=== PATIENT | female | born 1945 | race Caucasian/White ===

== ENCOUNTER 2019-09-04 11:41 | Inpatient (IN) | payer MEDICARE ==
[~2019-09-04] VITALS: Ht 175.3 cm; Wt 51.8 kg
[2019-09-04] VITALS (121 sets, daily range): BP systolic 117–144; BP diastolic 64–70; PULSE 92–101; TEMP 98–98.8; O2SAT 79–100
[~2019-09-04 11:41] MED LIST: ADVIL200 MG PO; NORVASC 5MG5 MG/TAB PO; ULTRAM 50MG TAB50 MG PO; ZYRTEC10 M1 PO
[2019-09-04] MEDS ORDERED: ALLEGRA 180MG180 MG PO (11:53)
[2019-09-04 12:31] LABS: BASO # 0.1 (0.0-0.2); BASO % 0.5 % (0.0-2.0); EOS # 0.3 (0.0-0.7); EOS % 2.2 % (0-4.0); GRAN # 9.1 (1.4-6.5); GRAN % 82.2 % (42.2-75.2); HEMOGLOBIN 10.8 g/dl (12.5-16.0); LYMPH % 8.6 % (20.0-51.0); MEAN CELL VOLUME 96 fl (80.0-100.0); MEAN CORPUSCULAR HEMOGLOBIN 29 pg (27.0-31.0); MEAN CORPUSCULAR HGB CONC 31 g/dl (33.0-37.0); MEAN PLATELET VOLUME 9.8 fl (7.4-10.4); MONO # 0.7 (0.1-0.6); PLATELET COUNT 289 K/mm3 (130-400); RED BLOOD COUNT 3.69 M/mm3 (4.10-5.30); REDCELL DISTRIBUTION WIDTH-CV 15.1 % (11.5-14.5)
[2019-09-04 12:33] LABS: ALBUMIN 3.6 gm/dL (3.5-5.0); BILIRUBIN,TOTAL 0.8 mg/dL (0.0-1.0); CALCIUM 8.6 mg/dL (8.4-10.2); CREATININE, serum 0.58 (0.52-1.25); POTASSIUM 3.5 mmol/L (3.4-5.0); TOTAL PROTEIN 7.3 gm/dL (6.4-8.2)
[2019-09-04 12:35] LABS: HEMATOCRIT 35.4 % (37.0-47.0); PROTHROMBIN TIME 11.6 SECONDS (9.7-12.8)
--- NOTE | 2019-09-04 15:40 | NUR ---
PATIENT ADMITED INTO ROOM 348 FROM ER WITH RIGHT HIP FX. A&O. RLE EXTERNALLY ROTATED. TEDS TO LLE. SCD'S TO BLE. POSITIVE PEDAL PULSES. ELIZALDE TO DEPENDENT DRAINAGE WITH SMALL AMOUNTS OF EWELINA COLORED URINE. IV FLUIDS INFUSING INTO LEFT AC VIA PUMP. PATIENT ON OXYGEN AT 3L PER NC. PATIENT HAS HX OF COPD AND WEARS OXYGEN AT HOME AT 3L. HEAD TO TOE ASSESSMENT COMPLETE. ORIENTED TO ROOM. ORTHO AT BEDSIDE. SEE ORDERS.
[2019-09-04] MEDS ORDERED: NORCO 325 MG-51 TAB PO (15:52)
[2019-09-04] MEDS ORDERED: XANAX .25M0.25 MG/TA PO (15:53)
[2019-09-04] MEDS ORDERED: ULTRAM 50MG TAB50 MG PO (15:53)
[2019-09-04] MEDS ORDERED: RT SPIRIVA18 MCG IH (15:54)
[2019-09-04] MEDS ORDERED: XOPENEX HF0.045 MG/A IH (15:56)
--- NOTE | 2019-09-04 16:10 | NUR ---
AT BEDSIDE. SEE ORDERS. PULM SPIROMETRY IN AM BEFORE PENDING SURGERY. SEE ORDERS.
[2019-09-04] MEDS ORDERED: PULMICORT0.5 MG/2 M IH (16:11)
[2019-09-04] MEDS ORDERED: PERFOROMIS20 MCG/2 M IH (16:11)
[2019-09-04 16:54] LABS: TSH w REFLEX 9.66 uIU/mL (0.465-4.680)
[2019-09-04 17:10] LABS: ARTERIAL BLD GAS O2 SATURATION 93.8 % (92-100); ARTERIAL BLD GAS TCO2 CT 34.4; ARTERIAL BLOOD GAS BASE EXCESS 4.5 (-2-2); ARTERIAL BLOOD GAS HCO3 32.3 meq/L (22-26); ARTERIAL BLOOD GAS PO2 73.6 mmHg (80-100); ARTERIAL BLOOD GAS pH 7.31 (7.35-7.45)
[2019-09-04 17:48] LABS: COLLECTION METHOD CATHETER
[2019-09-04 18:00] LABS: MUCOUS Present /lpf; PH 5 (5-8); SQUAMOUS EPITHELIAL None Seen /hpf; URINE APPEARANCE Turbid; URINE BACTERIA Occasional /hpf; URINE BILIRUBIN Negative (NEGATIVE); URINE BLOOD 1+ (NEGATIVE); URINE COLOR Amber; URINE GLUCOSE Negative (NEGATIVE); URINE KETONE Trace (NEGATIVE); URINE LEUKOCYTE ESTERASE Trace (NEGATIVE); URINE NITRATE Negative (NEGATIVE); URINE PROTEIN(semi-quant) 3+ (NEGATIVE); URINE RBC 0-2 /hpf; URINE UROBILINOGEN Negative (NEGATIVE)
--- NOTE | 2019-09-04 20:16 | NUR ---
Received report from LOIS Vera.
--- NOTE | 2019-09-04 20:35 | NUR ---
Patient arrived to ICU room 2 via medical bed. Patient was transferred to ICU bed via turning sheet. Patient arrives with nasal cannula on 3L of oxygen and D51/2NS running to the LAC at 60 mL/hour. Patient's vitals are obtained. O2 saturation rested at 90-91%, so oxygen was titrated to 5L and respiratory was notified of patient's arrival so that bipap could be initiated per Escobar's orders. All other vitals within normal limits. Patient arrives with tiffany hose on the left leg, and SCDs bilaterally. Patient's skin is further assessed; skin is warm, dry, and flaking; no other skin issues noted. Patient arrives with gold earrings and a gold necklace which are removed per her request and placed with her other belongings. Patient rates R hip pain as 4/10 with movement, but is tolerable otherwise. No other complaints noted at this time. Kenneth notified of patient's arrival. Will continue to monitor.
[2019-09-04 22:39] LABS: ARTERIAL BLD GAS O2 SATURATION 94.1 % (92-100); ARTERIAL BLD GAS TCO2 CT 33.4; ARTERIAL BLOOD GAS BASE EXCESS 4.1 (-2-2); ARTERIAL BLOOD GAS HCO3 31.5 meq/L (22-26); ARTERIAL BLOOD GAS PCO2 62.3 mmHg (35-45); ARTERIAL BLOOD GAS PO2 73.8 mmHg (80-100); ARTERIAL BLOOD GAS pH 7.32 (7.35-7.45)
[2019-09-05] VITALS (653 sets, daily range): BP systolic 103–157; BP diastolic 53–88; PULSE 66–93; TEMP 97.7–98.6; O2SAT 72–100
--- NOTE | 2019-09-05 02:00 | NUR ---
Report given to LOIS Calderon.
--- NOTE | 2019-09-05 02:40 | NUR ---
At bedside assisting with repostioning when heart rate suddenly increased to 140-160's appeared to be a-fib RVR. Episode lasting less than five minutes then HR back to baseline. At 0255, returned to A-fib RVR with a rate of 140's-160's. Patient denies any shortness of breath, palpitations or dizziness. BP stable. Notified hospitalist- will review EKG; no orders received at this time.
--- NOTE | 2019-09-05 03:33 | NUR ---
Converted back to sinus rhythm at this time. BP 140/67.
--- NOTE | 2019-09-05 04:12 | NUR ---
Hospitalist in unit; notified that patient is back in sinus rhythm.
[2019-09-05 04:55] LABS: ARTERIAL BLD GAS O2 SATURATION 94.2 % (92-100); ARTERIAL BLD GAS TCO2 CT 33.5; ARTERIAL BLOOD GAS BASE EXCESS 4.9 (-2-2); ARTERIAL BLOOD GAS HCO3 31.7 meq/L (22-26); ARTERIAL BLOOD GAS PCO2 58.4 mmHg (35-45); ARTERIAL BLOOD GAS PO2 71.5 mmHg (80-100); ARTERIAL BLOOD GAS pH 7.35 (7.35-7.45)
[2019-09-05 06:37] LABS: CALCIUM 8.3 mg/dL (8.4-10.2); CREATININE, serum 0.66 (0.52-1.25); POTASSIUM 5.4 mmol/L (3.4-5.0)
[2019-09-05 06:55] LABS: MEAN CELL VOLUME 99 fl (80.0-100.0); MEAN CORPUSCULAR HGB CONC 29 g/dl (33.0-37.0); MEAN PLATELET VOLUME 10.1 fl (7.4-10.4); PLATELET COUNT 254 K/mm3 (130-400); RED BLOOD COUNT 3.37 M/mm3 (4.10-5.30); REDCELL DISTRIBUTION WIDTH-CV 15.3 % (11.5-14.5)
[2019-09-05 07:09] LABS: HEMATOCRIT 33.3 % (37.0-47.0); HEMOGLOBIN 9.8 g/dl (12.5-16.0); MEAN CORPUSCULAR HEMOGLOBIN 29 pg (27.0-31.0)
--- NOTE | 2019-09-05 08:30 | NUR ---
DISCUSSED WITH PATIENT HAVING MRI PERFORMED. PATIENT STATES SHE GETS VERY ANXIOUS WITH "TESTS LIKE THAT" DR EMMANUEL CONFIRMED THAT PATIENT HAS SOME CLAUSTROPHOBIA. PATIENT AGREED TO HAVE MRI DONE IF SHE IS GIVEN MEDICATION FOR ANXIETY BEFOREHAND. DR EMMANUEL STATES TO GIVE HER 1MG ATIVAN PO ONCE BEFORE MRI.
[2019-09-05 08:32] LABS: BAND 4 % (0-10); EOSINOPHIL 1 % (0-4); LYMPHOCYTE 7 % (20.0-51.0); METAMYELOCYTE 2 % (0-0); NEUTROPHILS 85 % (42.0-75.2)
[2019-09-05 08:33] LABS: PLATELET ESTIMATE NORMAL (NORMAL)
--- NOTE | 2019-09-05 10:01 | NUR ---
PT TAKEN VIA CART TO MRI BY CHARGE OUT CLERK CRYSTAL.
--- NOTE | 2019-09-05 10:18 | NUR ---
PO perez met with the patient to discuss a discharge plan. The patient lives in [place] with her son. She is her sons caregiver. The patient reports her daughter, Regina lives in [place] but is staying in [place] with patient's son for a few days. The patient has a nebulizer at home and reports independence with ADLs. The patient reports that [facility] is to deliver some Ensure and a wheelchair to her house this day. The patient's PCP is Dr. Bi Cordero and patient receives medications delivered from [facility]. The patient does not have advanced directives in the EMR but was interested in a DPOA-HC form. The patient wishes to designate her daugthter. PO perez will assist with this process. The patient is to have an MRI this day. PO perez attempted to contact the patient's daughter and and was not able to leave a message. director of cardiopulmonary services will continue to follow to ensure a safe discharge.
--- NOTE | 2019-09-05 10:45 | NUR ---
PT RETURNED FROM MRI. PT TRANSFERRED TO ICU VIA SLIDE BOARD. PATIENT TOLERATED WELL.
--- NOTE | 2019-09-05 11:06 | NUR ---
PT NOTED TO HAVE PAROXYSMAL ATRIAL FIB WITH RATE RANGING FROM 90-115.
--- NOTE | 2019-09-05 12:23 | NUR ---
PT RESTING. FAMILY AT BEDSIDE.
--- NOTE | 2019-09-05 13:20 | NUR ---
PT SLEEPING, FAMILY REQUESTED SHE NOT BE DISTURBED.
--- NOTE | 2019-09-05 14:06 | NUR ---
SPOKE WITH LASHAE SAEZ, AGAIN REGARDING POSSIBILITY OF PATIENT GOING FOR HIP REPAIR THIS AFTERNOON. PLAN OF NOW IS TO TAKE PATIENT AROUND 1700 FOR HIP REPAIR.
--- NOTE | 2019-09-05 14:28 | NUR ---
DR SOTO NOTIFIED OF PATIENT GOING BACK INTO ATRIAL FIB WITH RAPID RATE AND HAS SUSTAINED FOR AROUND 30-45 MINS.
--- NOTE | 2019-09-05 14:42 | NUR ---
PT GIVEN 25MG IV OF CARDIZEM D/T PAROXYSMAL ATRIAL FIB WITH RVR 25MG GIVEN SLOW OVER 2 MINS. HR AFTER CARDIZEM NOW 75, SR WITH PVCS.
--- NOTE | 2019-09-05 14:48 | NUR ---
ATTEMPTED TO CALL DAUGHTER TWICE TO UPDATE HER ON THE PLAN TO TAKE PT TO SURGERY. NO ANSWER.
--- NOTE | 2019-09-05 14:56 | NUR ---
DAUGHTER CALLED BACK. I WAS ABLE TO UPDATE HER ON THE PLAN OF TAKING PATIENT TO SURGERY AROUND 1700.
--- NOTE | 2019-09-05 15:37 | NUR ---
CONSENT OBTAINED FROM PATIENT AND PLACED ON CHART.
--- NOTE | 2019-09-05 16:31 | NUR ---
PT TAKEN BY PREOP NURSES TO OR VIA BED. PATIENT LETHARGIC BUT EASILY AROUSABLE AND IS ALERT AND ORIENTED X 4.
--- NOTE | 2019-09-05 19:30 | NUR ---
Patient arrives back from OR at this time with PACU nurse. Bedside report received from LOIS Tyler. Attached patient to unit monitoring equipment and assessment complete. Lungs are clear in the upper lobes and all perkins are diminished. Patient on 3L NC and saturating 100%. HR and rhythm regular with normal S1 and S2 heard. Bowel sounds active x4. Peripheral pulses are all palable. Surgical site looks good, dressing intact, no drainage noted. Ice pack in place. Patient has no complaints of pain. She is very drowsy, but opens eyes spontaneously and answers questions appropriately. Patient has no further needs at this time. Will continue to monitor. Call light within reach.
[2019-09-06] VITALS (766 sets, daily range): BP systolic 100–145; BP diastolic 49–110; PULSE 57–150; TEMP 97.8–98.9; O2SAT 56–100
--- NOTE | 2019-09-06 | NUR ---
Patient awake at this time and asking to be repositioned. Assisted with boosting in the bed and turning to opposite side. Assessment complete with no changes from previous exam. Vitals obtained and remain stable. Patient has comeplaints of 8/10 pain in her right hip, medication to be provided. No further needs at this time. Will continue to monitor. Call light within reach.
--- NOTE | 2019-09-06 04:00 | NUR ---
Patient awake at this time and requesting more pain medications. To be provided. Assessment complete with no changes from previous exam. Vitals obtained and remain stable. Repositioned for comfort. Patient has no further needs. Will continue to monitor.
[2019-09-06 06:23] LABS: MEAN CELL VOLUME 98 fl (80.0-100.0); MEAN CORPUSCULAR HGB CONC 30 g/dl (33.0-37.0); MEAN PLATELET VOLUME 9.8 fl (7.4-10.4); PLATELET COUNT 269 K/mm3 (130-400); RED BLOOD COUNT 3.21 M/mm3 (4.10-5.30); REDCELL DISTRIBUTION WIDTH-CV 14.9 % (11.5-14.5)
[2019-09-06 06:33] LABS: HEMATOCRIT 31.5 % (37.0-47.0); HEMOGLOBIN 9.4 g/dl (12.5-16.0); MEAN CORPUSCULAR HEMOGLOBIN 29 pg (27.0-31.0)
[2019-09-06 06:38] LABS: CALCIUM 8.5 mg/dL (8.4-10.2); CREATININE, serum 0.86 (0.52-1.25); POTASSIUM 5.4 mmol/L (3.4-5.0)
--- NOTE | 2019-09-06 07:00 | NUR ---
Bedside shift report received from LOIS Ambriz. Patient is complaining of discomfort and noted to be in afib at this time. Dr. Aguilar notified of afib RVR. Orders received and initiated. Full assessment completed. Patient repositioned and given pain medication for hip pain. Bed in lowest position. Call light placed within reach. Side rails up x3.
[2019-09-06 07:15] LABS: BAND 5 % (0-10); HYPOCHROMIA 2+; LYMPHOCYTE 7 % (20.0-51.0); NEUTROPHILS 85 % (42.0-75.2)
--- NOTE | 2019-09-06 07:15 | NUR ---
Bedside report given to LOIS Grimes
--- NOTE | 2019-09-06 10:00 | NUR ---
Dr. Zapien notified of consult put in my Dr. Aguilar. Dr. Zapien updated on patient's current status and orders initiated by Dr. Aguilar. Dr. Zapien states to continue current treatment plan and he will see the patient this afternoon.
--- NOTE | 2019-09-06 10:55 | NUR ---
Dr. Aguilar notified that Cardizem gtt will be initiated per his verbal order. Dr. Aguilar states to initiate gtt at 5mg/hr. Orders initiated and patient has tolerated well. Heart rate currently irregular and 110's-150's. Refer to titration documentation for cardizem gtt.
--- NOTE | 2019-09-06 12:00 | NUR ---
Dr. Escobar at bedside to assess patient. Orders received and initiated. Patient converts to sinus rhythm. Bipap initiated. Patient has no complaints or concerns at this time. Patient's daughter at bedside. Full assessment completed. Bed in lowest position. Call light within reach. Side rails up x3.
--- NOTE | 2019-09-06 12:27 | NUR ---
Patient instructed not to eat lunch at the moment by Dr. Escobar. He would prefer the patient be on Bipap for the next couple hours, get an ABG, and then she can eat.
--- NOTE | 2019-09-06 13:06 | NUR ---
Patient remains on Bipap and is unable to perform incentive spirometry at this time.
--- NOTE | 2019-09-06 13:37 | NUR ---
SW received a call from Patients nurse asking for an explanation of what a DPOA is. SW met with patient at her bedside and Patients daughter Regina was also present. SW discussed purpose of DNR and assist in process of patient signing DNR with nurses as witnesses. SW made a copy for the patients file and provided the patient/daughter with a copy for their records. Patient declined further assistance at this time.
[2019-09-06 15:02] LABS: ARTERIAL BLD GAS O2 SATURATION 96.2 % (92-100); ARTERIAL BLD GAS TCO2 CT 24.6; ARTERIAL BLOOD GAS BASE EXCESS -0.5 (-2-2); ARTERIAL BLOOD GAS HCO3 23.5 meq/L (22-26); ARTERIAL BLOOD GAS PCO2 36.1 mmHg (35-45); ARTERIAL BLOOD GAS PO2 79.7 mmHg (80-100); ARTERIAL BLOOD GAS pH 7.43 (7.35-7.45)
--- NOTE | 2019-09-06 19:00 | NUR ---
Bedside shift report given to LOIS Ambriz at this time. Patient is sleeping peacefully. Vital signs stable. Call light within reach. Bed in lowest position. Side rails up x3.
--- NOTE | 2019-09-06 19:20 | NUR ---
Bedside report received from LOIS Grimes. All drips confirmed. Transfer of care.
--- NOTE | 2019-09-06 20:00 | NUR ---
Patient awake at this time and fussing with her blankets. Patient is alert and oriented x2. When asked where she is right now, she answers with a "stationary store" and proceeds to give road names and directions on how to get there. Speech is rambling. Patient is oriented to self, year, and knows the president. does not answer month, date, or place correctly. Assessment complete. Lungs are clear in the upper lobes with all perkins being diminished. HR and rhythm are regular with normal S1 and S2 heard. Bowel sounds active x4. Peripheral pulses are palpable in all extremities. Right hip dressing is clean and intact. Patient has no complaints of pain at this time. Assisted patient to reposition in bed for comfort. Will continue to monitor. Call light within reach.
[2019-09-07] VITALS (226 sets, daily range): BP systolic 123–150; BP diastolic 60–78; PULSE 59–130; TEMP 97.4–98.8; O2SAT 65–100
--- NOTE | 2019-09-07 | NUR ---
Patient sleeping peacefully on the BiPAP at this time. No signs of distress or pain. Vitals obtained and remain stable. No further needs at this time. Will continue to monitor. Call light within reach.
--- NOTE | 2019-09-07 04:00 | NUR ---
Patient continues to sleep quietly on the BiPAP. Patient awakens to name and follows commands, but falls back asleep quickkly. Vitals obtained and remain stable. No signs of pain or distress. Repositioned for comfort. Will continue to monitor. Call light within reach.
[2019-09-07 06:11] LABS: HEMATOCRIT 30.1 % (37.0-47.0); HEMOGLOBIN 9.3 g/dl (12.5-16.0)
--- NOTE | 2019-09-07 07:22 | NUR ---
Bedside report given to LOIS Martinez
--- NOTE | 2019-09-07 12:00 | NUR ---
Received patient from ICU per bed. O2 on at 3L per nasal cannula. Telemetry intact. No c/o pain. Aquacell dressing CDI to right hip. Daughter at bedside.
--- NOTE | 2019-09-07 12:30 | NUR ---
Medicated with Morphine for c/o right hip pain.
--- NOTE | 2019-09-07 13:30 | NUR ---
Physical therapy stood patient x 3. Tolerated activity well.
--- NOTE | 2019-09-07 14:00 | NUR ---
Xanax given for c/o feeling anxious. Repositioned in bed.
--- NOTE | 2019-09-07 15:00 | NUR ---
Telemetry reports atrial fib in 120's. Cardiazem po given per order.
--- NOTE | 2019-09-07 17:00 | NUR ---
IV Cardizem for heart rate in 150's. Rate down to 90's after med. Has been medicated with [place] for c/o right hip pain.
--- NOTE | 2019-09-07 18:30 | NUR ---
Repositioned in bed without complaint. Heart rate fluctuating from 70's to 150's.
--- NOTE | 2019-09-07 20:45 | NUR ---
Pt resting in bed with HOB elevated. Pt c/o pain in R hip. PRN meds given. No distress noted. Respirations even and unlabored. Lungs clear. O2@3L via NC. Telemetry in place- A. fib non rate controlled. Abdomen soft, nontender. Bs+. Pts catheter was discontinued on dayshift and patient has not voided yet. Pt put on bed wright with no results. Coccyx reddned- mepilex applied. Pt repositioned for comfort.
--- NOTE | 2019-09-07 21:45 | NUR ---
Bladder scan completed- 350 mL. Pt still unable to void.
--- NOTE | 2019-09-07 21:50 | NUR ---
Dr. Castano called about patients non rate controlled A.fib as well as about patient not voiding since catheter being removed. No new orders received at this time. Will continue to monitor patient.
--- NOTE | 2019-09-07 23:10 | NUR ---
Pts rate continues to jump up to 150s. IV Cardizem bolus given per MS order. VSS.
--- NOTE | 2019-09-08 00:15 | NUR ---
Post catheter void successful. Pt voided in bed wright 350 mL clear, leonidas urine.
--- NOTE | 2019-09-08 04:00 | NUR ---
Pt converted to normal sinus rhythm. Sleeping with BiPAP on.
[2019-09-08 06:17] LABS: BASO % 0.1 % (0.0-2.0); GRAN # 12.9 (1.4-6.5); GRAN % 89.6 % (42.2-75.2); HEMOGLOBIN 10.5 g/dl (12.5-16.0); LYMPH # 0.5 (1.2-3.4); LYMPH % 3.5 % (20.0-51.0); MEAN CELL VOLUME 94 fl (80.0-100.0); MEAN CORPUSCULAR HEMOGLOBIN 30 pg (27.0-31.0); MEAN CORPUSCULAR HGB CONC 31 g/dl (33.0-37.0); MEAN PLATELET VOLUME 9.9 fl (7.4-10.4); MONO # 0.9 (0.1-0.6); MONO % 6.2 % (1.7-9.3); PLATELET COUNT 327 K/mm3 (130-400); RED BLOOD COUNT 3.55 M/mm3 (4.10-5.30); REDCELL DISTRIBUTION WIDTH-CV 15.1 % (11.5-14.5)
[2019-09-08 06:19] LABS: HEMATOCRIT 33.4 % (37.0-47.0)
[2019-09-08 06:32] LABS: ALBUMIN 3.2 gm/dL (3.5-5.0); BILIRUBIN,TOTAL 0.2 mg/dL (0.0-1.0); CALCIUM 8.5 mg/dL (8.4-10.2); CREATININE, serum 0.71 (0.52-1.25); POTASSIUM 4.2 mmol/L (3.4-5.0); TOTAL PROTEIN 6.5 gm/dL (6.4-8.2)
--- NOTE | 2019-09-08 06:45 | NUR ---
Pt resting this AM. States that she is comfortable and denies pain. Adequate urinary output. Using bed wright. Telemetry in place. Pt is still in sinus rhythm. BiPAP removed and O2@3L placed on pt per pt request. Pt refused Ice pack to R hip. No other needs noted.
[2019-09-08 07:35] VITALS: BP 149/57; PULSE 74; TEMP 98.6
--- NOTE | 2019-09-08 10:00 | NUR ---
Patient alert and oriented, answers questions appropriately. See assessment. RLE with aquacel CDI, no redness or drainage noted. Neuros intact to RLE, no numbness or tingling noted, pulses palpable. FWB. Redness noted to coccyx, mepilex in place. C/o mild pain 3/10 to RLE. No other c/o at this time.
--- NOTE | 2019-09-08 10:24 | NUR ---
The patient is needing a custodial stay. CATHI presented the patient choice form. The patient's first choice is [facility] and second choice is [facility] in [place] [employer] and form was placed in the chart. CATHI placed form in chart. SW faxed referrals. technology services manager will continue to follow.
[2019-09-08 11:27] VITALS: BP 156/61; PULSE 76; TEMP 97.5
--- NOTE | 2019-09-08 15:18 | NUR ---
Patient has frequently refused IS throughout the day. States it causes too much pain to her RLE. Continue to encourage.
[2019-09-08 16:08] VITALS: BP 146/59; PULSE 91; TEMP 98.1
--- NOTE | 2019-09-08 16:30 | NUR ---
Dr Aguilar notified of conversion into A-flutter per tele, requests that Dr Zapien be notified. Dr Zapien notified, see orders.
--- NOTE | 2019-09-08 16:39 | NUR ---
[facility] reports they can take the patient. horticultural services supervisor will continue to follow.
[2019-09-08 19:40] VITALS: BP 153/73; PULSE 73; TEMP 97.8
--- NOTE | 2019-09-08 20:52 | NUR ---
Resting in bed. Assessment complete. Bases bilaterally crackles, upper lobes diminished. Heart sounds irregular. Pulses strong throughout. No edema noted. Bowels active x4. Reports 6/10 pain in right hip. Repositioned and provided with PRN percocet at this time. Coccyx erythema present, blanchable. Mepalex applied. Right hip dressing has mild drainage present otherwise dressing intact. Left elbow bruising present. Right forearm INT flushed without complications. Denies other needs. Call light in reach.
[2019-09-08 22:37] VITALS: BP 137/56; PULSE 88; TEMP 97.6
--- NOTE | 2019-09-09 03:20 | NUR ---
Provided patient KRUNAL arroyo for hip pain at this time. Call light in reach. Bed wright used.
[2019-09-09 03:46] VITALS: BP 156/67; PULSE 85; TEMP 97.4
--- NOTE | 2019-09-09 06:29 | NUR ---
Patient required x2 doses of norco throughout night for right hip pain. Otherwise uneventful night. Resting in bed this AM.
--- NOTE | 2019-09-09 06:47 | NUR ---
Report given to LOIS Garza
[2019-09-09 07:07] LABS: BASO % 0.1 % (0.0-2.0); GRAN # 13.5 (1.4-6.5); GRAN % 89.8 % (42.2-75.2); LYMPH # 0.5 (1.2-3.4); LYMPH % 3.2 % (20.0-51.0); MEAN CELL VOLUME 94 fl (80.0-100.0); MEAN CORPUSCULAR HGB CONC 31 g/dl (33.0-37.0); MEAN PLATELET VOLUME 9.9 fl (7.4-10.4); MONO # 0.9 (0.1-0.6); MONO % 6.2 % (1.7-9.3); PLATELET COUNT 314 K/mm3 (130-400); RED BLOOD COUNT 3.28 M/mm3 (4.10-5.30); REDCELL DISTRIBUTION WIDTH-CV 15.4 % (11.5-14.5)
[2019-09-09 07:08] LABS: HEMATOCRIT 30.9 % (37.0-47.0); HEMOGLOBIN 9.6 g/dl (12.5-16.0); MEAN CORPUSCULAR HEMOGLOBIN 29 pg (27.0-31.0)
[2019-09-09 07:26] LABS: ALBUMIN 2.7 gm/dL (3.5-5.0); BILIRUBIN,TOTAL 0.2 mg/dL (0.0-1.0); CALCIUM 8.5 mg/dL (8.4-10.2); CREATININE, serum 0.53 (0.52-1.25); POTASSIUM 4.3 mmol/L (3.4-5.0); TOTAL PROTEIN 5.6 gm/dL (6.4-8.2)
[2019-09-09 07:29] VITALS: BP 139/57; PULSE 78; TEMP 97.7
--- NOTE | 2019-09-09 08:00 | NUR ---
Patient alert and oriented, answers questions appropriately. See assessment. RLE with aquacel CDI, no redness or drainage noted. Pulses palpable to RLE, neuros intact. FWB. C/o pain 4/10 to right hip. No other c/o at this time.
--- NOTE | 2019-09-09 09:48 | NUR ---
Gloria Zapien and Shawn here to see patient.
[2019-09-09] MEDS ORDERED: CARDIZEM CD 18180 MG PO (11:17)
[2019-09-09] MEDS ORDERED: ELIQUIS 2.5 PO (11:18)
[2019-09-09] MEDS ORDERED: NORCO 325 MG-51 TAB PO (11:19)
[2019-09-09] MEDS ORDERED: XANAX .25M0.25 MG/TA PO (11:20)
[2019-09-09 12:02] VITALS: BP 153/64; PULSE 92; TEMP 98
[2019-09-09 14:03] VITALS: BP 153/64; PULSE 92; TEMP 98
--- NOTE | 2019-09-09 15:40 | NUR ---
Patient discharged to [facility] with transporation staff. Report called to Shana. Paperwork sent. Discharge time is 1510.
--- NOTE | 2019-09-09 16:20 | NUR ---
Medical Logistics Specialist attended clinical rounds with the team and patient to discharge today. CATHI faxed updates including operative note to Missy at [facility] who advised they could accept today. CATHI set up transportation time for 2:30pm and notified patient RN, Kayla. CATHI notified Missy that patient requires 3 liters of oxygen for transportation. CATHI met with patient who is in agreeance, although states she is very tired. CATHI contacted patient's daughter, Noreen (ph#[phone]) to notify about discharge plan and Noreen is in agreeance. CATHI faxed discharge orders to Missy at [facility]. No additional concerns at this time.
--- NOTE | 2019-09-09 16:23 | NUR ---
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 CATHI collaborated with Missy at [facility] and [facility] to obtain needed oxygen for transportation. Missy (ph#[phone]) to return oxygen tank to ER at earliest convience.
== END 2019-09-09 15:10 | DRG 469 ==
LOC: COL.ER 11:41 → ICU 12:11 → SURG 12:11 → ICU 20:36 → SURG 09-07 12:19
PROVIDERS: Emergency Medicine; Internal Medicine; Internal Medicine Pulmonary Disease; Physician Assistant; ADMIT Student in an Organized Health Care Education/Training Program
PROC: 0SRR019 Replacement of Right Hip Joint, Femoral Surface with Metal Synthetic Substitute, Cemented, Open Approach (ICD-10-PCS; principal; 2019-09-04)
PROC: 5A09457 Assistance with Respiratory Ventilation, 24-96 Consecutive Hours, Continuous Positive Airway Pressure (ICD-10-PCS; 2019-09-06)
DX: S72.001A Fracture of unspecified part of neck of right femur, initial encounter for closed fracture (principal); J96.21 Acute and chronic respiratory failure with hypoxia; M31.1 Thrombotic microangiopathy; J96.22 Acute and chronic respiratory failure with hypercapnia; N39.0 Urinary tract infection, site not specified; I50.22 Chronic systolic (congestive) heart failure; J84.10 Pulmonary fibrosis, unspecified; I48.91 Unspecified atrial fibrillation; E87.5 Hyperkalemia; B96.20 Unspecified Escherichia coli [E. coli] as the cause of diseases classified elsewhere; Z66 Do not resuscitate; J44.9 Chronic obstructive pulmonary disease, unspecified; I08.1 Rheumatic disorders of both mitral and tricuspid valves; I48.0 Paroxysmal atrial fibrillation; F40.240 Claustrophobia; D64.9 Anemia, unspecified; W01.0XXA Fall on same level from slipping, tripping and stumbling without subsequent striking against object, initial encounter; Y93.01 Activity, walking, marching and hiking; Z90.710 Acquired absence of both cervix and uterus; Z87.891 Personal history of nicotine dependence; Y92.009 Unspecified place in unspecified non-institutional (private) residence as the place of occurrence of the external cause; Y99.9 Unspecified external cause status; Z88.1 Allergy status to other antibiotic agents
CPT/HCPCS: 99223-AI; 99231-AI; 99232-AI; 99233-AI; 99239; A4216; A9284; C1776; J0696; J2270; J2370; J2405; J2704; J2795; J2920; J3480; J7030; J7512

== ENCOUNTER 2019-09-25 10:14 | Inpatient (IN) | payer MEDICARE ==
[~2019-09-25] VITALS: Ht 175.3 cm; Wt 53.0 kg
[2019-09-25] VITALS (195 sets, daily range): BP systolic 110–116; BP diastolic 43–65; PULSE 69–79; TEMP 97–97.5; O2SAT 93–100
[~2019-09-25 10:14] MED LIST changes: +ALLEGRA 180MG180 MG PO; +CARDIZEM CD 18180 MG PO; +ELIQUIS 2.5 PO; +NORCO 325 MG-51 TAB PO; +PERFOROMIS20 MCG/2 M IH; +PULMICORT0.5 MG/2 M IH; +RT SPIRIVA18 MCG IH; +XANAX .25M0.25 MG/TA PO; +XOPENEX HF0.045 MG/A IH
[2019-09-25 11:16] LABS: ARTERIAL BLD GAS O2 SATURATION 90.2 % (92-100); ARTERIAL BLD GAS TCO2 CT 36.7; ARTERIAL BLOOD GAS BASE EXCESS 7.7 (-2-2); ARTERIAL BLOOD GAS HCO3 34.7 meq/L (22-26); ARTERIAL BLOOD GAS PCO2 65.6 mmHg (35-45); ARTERIAL BLOOD GAS PO2 62.5 mmHg (80-100); ARTERIAL BLOOD GAS pH 7.34 (7.35-7.45)
[2019-09-25 11:22] LABS: MEAN CELL VOLUME 97 fl (80.0-100.0); MEAN CORPUSCULAR HEMOGLOBIN 30 pg (27.0-31.0); MEAN CORPUSCULAR HGB CONC 31 g/dl (33.0-37.0); MEAN PLATELET VOLUME 9.6 fl (7.4-10.4); PLATELET COUNT 382 K/mm3 (130-400); RED BLOOD COUNT 2.68 M/mm3 (4.10-5.30); REDCELL DISTRIBUTION WIDTH-CV 15.9 % (11.5-14.5)
[2019-09-25 11:24] LABS: INR 1.5 (0.8-3.0); PROTHROMBIN TIME 18.1 SECONDS (9.7-12.8)
[2019-09-25 11:33] LABS: ALANINE AMINOTRANSFERASE 40 U/L (9-52); ALKALINE PHOSPHATASE 114 U/L (50-136); ANION GAP 6 mmol/L (7-16); AST,SGOT 21 U/L (15-37); BILIRUBIN,TOTAL 0.4 mg/dL (0.0-1.0); BLOOD UREA NITROGEN 30 mg/dL (7-17); CARBON DIOXIDE 37 mmol/L (22-30); CHLORIDE 93 mmol/L (98-107); CREATININE, serum 0.62 (0.52-1.25); GLUCOSE 112 mg/dL (74-106); POTASSIUM 3.7 mmol/L (3.4-5.0); SODIUM 136 mmol/L (137-145); TOTAL PROTEIN 6.1 gm/dL (6.4-8.2)
[2019-09-25 11:52] LABS: TROPONIN-I < 0.012 ng/mL (0.000-0.035)
[2019-09-25 11:54] LABS: BAND 31 % (0-10); LYMPHOCYTE 4 % (20.0-51.0); METAMYELOCYTE 1 % (0-0); NEUTROPHILS 62 % (42.0-75.2); PLATELET ESTIMATE NORMAL (NORMAL)
[2019-09-25 11:59] LABS: COLLECTION METHOD CATHETER
[2019-09-25 12:14] LABS: MUCOUS Present /lpf; PH 6 (5-8); SQUAMOUS EPITHELIAL None Seen /hpf; URINE APPEARANCE Clear; URINE BACTERIA None Seen /hpf; URINE BILIRUBIN Negative (NEGATIVE); URINE BLOOD Negative (NEGATIVE); URINE COLOR Yellow; URINE GLUCOSE Negative (NEGATIVE); URINE KETONE Negative (NEGATIVE); URINE LEUKOCYTE ESTERASE Trace (NEGATIVE); URINE NITRATE Negative (NEGATIVE); URINE PROTEIN(semi-quant) Negative (NEGATIVE); URINE UROBILINOGEN Negative (NEGATIVE)
[2019-09-25 13:47] LABS: ARTERIAL BLD GAS O2 SATURATION 97.7 % (92-100); ARTERIAL BLD GAS TCO2 CT 37.1; ARTERIAL BLOOD GAS BASE EXCESS 8.2 (-2-2); ARTERIAL BLOOD GAS HCO3 35.1 meq/L (22-26); ARTERIAL BLOOD GAS PO2 98.3 mmHg (80-100); ARTERIAL BLOOD GAS pH 7.35 (7.35-7.45)
[2019-09-25 13:48] LABS: ARTERIAL BLOOD GAS PCO2 65.2 mmHg (35-45)
[2019-09-25] MEDS ORDERED: ASPIRIN 32325 MG/TAB PO ×2 (16:15→18:00)
[2019-09-25] MEDS ORDERED: CALCIUM 600600 M2 PO (16:15)
[2019-09-25] MEDS ORDERED: COLACE 100100 MG/CAP PO (16:16)
[2019-09-25] MEDS ORDERED: RT SPIRIVA18 MCG IH (16:17)
[2019-09-25 16:28] LABS: ARTERIAL BLD GAS O2 SATURATION 98.8 % (92-100); ARTERIAL BLOOD GAS BASE EXCESS 4.9 (-2-2); ARTERIAL BLOOD GAS HCO3 31.2 meq/L (22-26); ARTERIAL BLOOD GAS PCO2 57.5 mmHg (35-45); ARTERIAL BLOOD GAS pH 7.35 (7.35-7.45)
[2019-09-25 16:29] LABS: ARTERIAL BLOOD GAS PO2 131.9 mmHg (80-100)
--- NOTE | 2019-09-25 17:20 | NUR ---
Pt arrives to ICU room 15 acc by ED staff. Call received from CT regarding new order for CT head. Pt transferred to bed and sent to CT with tech. Pt's daughter calls for update-privacy code provided, update given. Dr Escobar updated with recent ABG results. Bipap rate increased from 20-22. Patient's respirations shallow with Tidal Volumes in mid 100s while asleep. Rouses to touch and resumes deeper inhalation with TV in 300-400 range.
--- NOTE | 2019-09-25 19:20 | NUR ---
Call placed to MS to clarify last dose of cardizem as patient is NPO, and has a recent history of afib with RVR. Has not received since yesterday morning. Discussed with provider and paramaters to hold obtained. We will continue with drip for prevention. Shift report given.
[2019-09-26] VITALS (766 sets, daily range): BP systolic 93–117; BP diastolic 44–68; PULSE 78–85; TEMP 97–98.7; O2SAT 90–100
[2019-09-26 05:07] LABS: ARTERIAL BLD GAS TCO2 CT 32.8; ARTERIAL BLOOD GAS BASE EXCESS 8.8 (-2-2); ARTERIAL BLOOD GAS HCO3 31.7 meq/L (22-26); ARTERIAL BLOOD GAS PCO2 36.1 mmHg (35-45); ARTERIAL BLOOD GAS PO2 64.1 mmHg (80-100); ARTERIAL BLOOD GAS pH 7.56 (7.35-7.45)
[2019-09-26 05:21] LABS: MEAN CELL VOLUME 96 fl (80.0-100.0); MEAN CORPUSCULAR HGB CONC 31 g/dl (33.0-37.0); MEAN PLATELET VOLUME 9.9 fl (7.4-10.4); PLATELET COUNT 392 K/mm3 (130-400); RED BLOOD COUNT 2.27 M/mm3 (4.10-5.30); REDCELL DISTRIBUTION WIDTH-CV 15.9 % (11.5-14.5)
[2019-09-26 05:22] LABS: HEMATOCRIT 21.7 % (37.0-47.0); HEMOGLOBIN 6.7 g/dl (12.5-16.0); MEAN CORPUSCULAR HEMOGLOBIN 30 pg (27.0-31.0)
[2019-09-26 05:26] LABS: ALBUMIN 2.8 gm/dL (3.5-5.0); BILIRUBIN,TOTAL 0.5 mg/dL (0.0-1.0); CALCIUM 8.7 mg/dL (8.4-10.2); CREATININE, serum 0.73 (0.52-1.25); MAGNESIUM 1.9 mg/dL (1.6-2.3); POTASSIUM 4.4 mmol/L (3.4-5.0); TOTAL PROTEIN 5.6 gm/dL (6.4-8.2)
--- NOTE | 2019-09-26 05:32 | NUR ---
Notified KENNEDY Dorado about pt's HGB of 6.7 from 8. She is reordering an H&H to be drawn. Pt otherwise stable and will continue to monitor.
[2019-09-26 05:45] LABS: ANISOCYTOSIS 1+; BAND 69 % (0-10); HYPOCHROMIA 2+; LYMPHOCYTE 1 % (20.0-51.0); METAMYELOCYTE 1 % (0-0); NEUTROPHILS 28 % (42.0-75.2); PLATELET ESTIMATE NORMAL (NORMAL)
[2019-09-26 05:47] LABS: OVALOCYTES 1+
[2019-09-26 06:05] LABS: HEMATOCRIT 21.2 % (37.0-47.0); HEMOGLOBIN 6.8 g/dl (12.5-16.0)
--- NOTE | 2019-09-26 10:12 | NUR ---
I spoke with daughter Regina this morning by phone. She has already spoken to Dr Escobar once today and is aware that she is having a thoracentesis and getting blood today. This is the anniversary month of her 's one year ago. She is very tearful and feeling emotional but is a lso very clear that she is still hoping that her mother will show improvement and does want to support her to allow improvement but does not want her mother to suffer if she is not improving. If she does not show improvement, then she would want her to be on comfort care. She is aware that this decision would need to be made under those circumstances in the next few hours to days, if her mother does not improve. Her went to the hospice house to live out his final days last year. I will maintain contact with her and did give her my contact information.
--- NOTE | 2019-09-26 11:54 | NUR ---
First visit from the cad application support specialist. No needs right now.
[2019-09-26 12:09] LABS: PLEURAL FLUID RBC 1000 /mm3 (0-0); PLEURAL FLUID WBC 3081 /mm3
[2019-09-26 12:14] LABS: PLEURAL FLUID APPEARANCE HAZY; PLEURAL FLUID COLOR YELLOW
--- NOTE | 2019-09-26 12:30 | NUR ---
Auto Wheel Alignment Specialist in to obtain prelim images and set up for Left Lung thoracentesis. Pt is refusing. Will reassess in am.
[2019-09-26 12:38] LABS: GLUCOSE,PLEURAL FLUID 97 mg/dL
[2019-09-26 12:40] LABS: TOTAL PROTEIN,PLEURAL FLUID < 2.0 gm/dL
--- NOTE | 2019-09-26 17:24 | NUR ---
Talked with pt this am and with her daughter Regina by phone. Pt is not happy at the longterm. She reports feeling better after having pleural effusion on right drained. She was also to get a unit of blood today. It is her hope and daughter's hope to treat her pneumonia and drain other pleural effusions to allow her to feel better but daughter is realistic that with recent hip fracture and now this pneumonia/respiratory failure that her mother may not get better. Currently we are managing her respiratory failure but daughter reports that she will come to bedside if things worsen . She is also very clear that changing to a comfort care goal would be considered if her mother doesn't show improvement. She did speak with her daughter by phone briefly but then fell asleep.
--- NOTE | 2019-09-26 17:49 | NUR ---
Pt receiving one unit PRBC. No s/s reaction in first 15 min VSS Resting after receiving IV morphine for R leg/hip pain.
--- NOTE | 2019-09-26 19:45 | NUR ---
Bedside report received from LOIS Regalado
--- NOTE | 2019-09-26 20:00 | NUR ---
Patient asleep at this time. Awakens to name and follows commands. Conversation is confused. When asked if she is in pain she states, "No, I'm pretty comfortable right now. I'm ok right now." Vitals obtained and are WNL. Patient on 3L NC. Assessment complete. Lungs are clear in all perkins but also diminished. HR and rhythm are regular with normal S1 and S2 heard. Bowel sounds active x4. Patient has some +1 edema to the lower extremities. Patient's right hip incision is well approximated and held together with glue. No dressing present. Pillow between legs. Patient has no further needs at this time and requests to sleep some more. Assisted to a more comfortable position. Call light within reach. Will continue to monitor.
[2019-09-26 20:33] LABS: HEMATOCRIT 25.9 % (37.0-47.0); HEMOGLOBIN 8.2 g/dl (12.5-16.0)
[2019-09-27] VITALS (695 sets, daily range): BP systolic 91–119; BP diastolic 35–87; PULSE 74–148; TEMP 97.1–97.9; O2SAT 62–100
--- NOTE | 2019-09-27 | NUR ---
Patient resting on the BiPAP. Awakens to name and answers some questions, but becomes uncooperative quickly and states "Just get out. Leave me alone". Vitals obtained and remain stable. No further needs at this time. Will continue to monitor. Call light within reach.
--- NOTE | 2019-09-27 04:00 | NUR ---
Patient asleep on BiPAP. Patient responds to stimuli and noise in the room, but is not cooperative with staff and moans to "leave me alone, just let me sleep". Vitals obtained and remain stable. When asked if in pain, she shakes her head no. Patient has no further needs at this time. Will continue to monitor.
[2019-09-27 05:35] LABS: MEAN CELL VOLUME 94 fl (80.0-100.0); MEAN CORPUSCULAR HGB CONC 33 g/dl (33.0-37.0); MEAN PLATELET VOLUME 9.8 fl (7.4-10.4); PLATELET COUNT 401 K/mm3 (130-400); RED BLOOD COUNT 2.77 M/mm3 (4.10-5.30); REDCELL DISTRIBUTION WIDTH-CV 15.4 % (11.5-14.5)
[2019-09-27 05:41] LABS: HEMOGLOBIN 8.5 g/dl (12.5-16.0); MEAN CORPUSCULAR HEMOGLOBIN 31 pg (27.0-31.0)
[2019-09-27 05:50] LABS: CALCIUM 7.9 mg/dL (8.4-10.2); CREATININE, serum 0.91 (0.52-1.25)
[2019-09-27 06:47] LABS: BAND 52 % (0-10); LYMPHOCYTE 2 % (20.0-51.0); NEUTROPHILS 44 % (42.0-75.2)
[2019-09-27 06:48] LABS: PLATELET ESTIMATE INCREASED (NORMAL)
--- NOTE | 2019-09-27 07:00 | NUR ---
Bedside report received from LOIS Ambriz.
--- NOTE | 2019-09-27 07:30 | NUR ---
Bedside report given to LOIS Ga
--- NOTE | 2019-09-27 07:30 | NUR ---
Patient c/o being uncomfortable. She is repositioned multiple times and warm blankets given to her.
--- NOTE | 2019-09-27 09:30 | NUR ---
Dr. Escobar here to see patient. After discussing with patient, it is decided to attempt Left Thoracentesis tomorrow. Consent obtained from Daughter via phone.
--- NOTE | 2019-09-27 11:30 | NUR ---
Dr. Castano rounds at this time.
--- NOTE | 2019-09-27 15:34 | NUR ---
PATIENT SHOWING S/S CONFUSION AND DELERIUM. SHE IS EASILY REORIENTED WITH CONVERSATION WITH THIS RN. SHE IS MOVED TO ROOM 3, WHICH HAS A WINDOW. DR. LITTLEJOHN UPDATE AT THIS TIME. HE AGREES ABOUT THE ROOM CHANGE. WILL CONTINUE TO MONITOR.
--- NOTE | 2019-09-27 15:45 | NUR ---
PATIENT NOTED TO BE IN AFIB RVR. CALL PLACED TO DR. LITTLEJOHN. ORDER RECEIVED FOR IV CARDIZEM BOLUS.
--- NOTE | 2019-09-27 16:04 | NUR ---
IV CARDIZEM BOLUS GIVEN. PATIENT REMAINS AFIB WITH RATE IN 130s. DR. LITTLEJOHN ON UNIT TO SEE PATIENT. ORDERS RECEIVED FOR PATIENT'S HOME DOSE OF XANAX. PATIENT C/O ANXIETY AT THIS TIME. WILL CONTINUE TO MONITOR
--- NOTE | 2019-09-27 19:07 | NUR ---
Report given to LOIS Ambriz. Patient lying in bed with no complaints. HR 148 Afib RVR on tele. KENNEDY Chauhan aware of this. She wants to wait and see if her PO Cardizem helps with HR. Katina knows to follow up with KENNEDY Chauhan if rate does not come down. Care turned over at this time.
--- NOTE | 2019-09-27 19:07 | NUR ---
Bedside report received from LOIS Ga
--- NOTE | 2019-09-27 20:00 | NUR ---
Patient awake in bed watching TV. Patient is alert and partially oriented, but conversation becomes confused. Vitals obtained a BP remains stable. Patient is in Afib RVR. Cardizem was given, waiting to see if conversion before given another bolus per provider. Assessment complete. Patient's HR is irregular, first heart sound heard. Lungs are clear in the upper lobes with diminished in the bases and left lower lobe being absent. Bowel sounds active x4. Peripheral pulses are palpable in all extremities. BLE edema +2. Patient does not have complaints of pain at this time and is not requesting medications. States she does have some anxiety feelings. Made room darker for her comfort and adjusted blankets and cords to keep her from feeling constricted. Patient has no further needs at this time. Will continue to monitor. Call light within reach.
--- NOTE | 2019-09-27 20:25 | NUR ---
Patient was given a 10mg bolus of cardizem at 2019, patient converted to afib 2mins later, then at this time she converts to sinus rhythm with frequent PAC's. Will continue to monitor.
[2019-09-28] VITALS (905 sets, daily range): BP systolic 103–126; BP diastolic 53–63; PULSE 80–97; TEMP 97.5–98.1; O2SAT 55–100
--- NOTE | 2019-09-28 | NUR ---
Patient resting in bed watching tv. Vitals obtained and remain stable. Patient states pain is better. Patient is requesting some soup at this time. Provided. Patient has no further needs, will continue to monitor.
--- NOTE | 2019-09-28 04:00 | NUR ---
Patient sleeping at this time. Awakens to name. Vitals obtained and remain stable. does have complaints of pain rated 6/10, medication to be provided. Patient requests some ice cream, provided. Patient has no further needs at this time. Will continue to monitor. Call light within reach.
--- NOTE | 2019-09-28 05:00 | NUR ---
Patient is noted to have swelling to her right elbow that is pitting +1. Notified KENNEDY Chauhan. Patient's arm elevated on pillow. Patient states that this happens to her because she uses that arm to move herself and pushes on her elbow. Patient's arm above and below the edema are free of swelling, PICC line has perfect blood return and flushes. Arm circumference remains the same. Will continue to monitor.
[2019-09-28 05:07] LABS: MEAN CELL VOLUME 95 fl (80.0-100.0); MEAN CORPUSCULAR HGB CONC 32 g/dl (33.0-37.0); MEAN PLATELET VOLUME 9.4 fl (7.4-10.4); PLATELET COUNT 408 K/mm3 (130-400); RED BLOOD COUNT 2.74 M/mm3 (4.10-5.30); REDCELL DISTRIBUTION WIDTH-CV 15.5 % (11.5-14.5)
[2019-09-28 05:18] LABS: CALCIUM 7.8 mg/dL (8.4-10.2); CREATININE, serum 0.95 (0.52-1.25); POTASSIUM 3.6 mmol/L (3.4-5.0)
[2019-09-28 05:26] LABS: HEMATOCRIT 26.1 % (37.0-47.0); HEMOGLOBIN 8.3 g/dl (12.5-16.0); MEAN CORPUSCULAR HEMOGLOBIN 30 pg (27.0-31.0)
[2019-09-28 06:32] LABS: BAND 45 % (0-10); LYMPHOCYTE 1 % (20.0-51.0); METAMYELOCYTE 1 % (0-0); NEUTROPHILS 52 % (42.0-75.2); PLATELET ESTIMATE INCREASED (NORMAL)
--- NOTE | 2019-09-28 07:38 | NUR ---
Bedside report given to LOIS Ga
--- NOTE | 2019-09-28 12:23 | NUR ---
Vancomycin Initial Dosing Pharmacy Note Ordering provider: Michael Castano MD Indication/duration: COPD, PNA LABS: eCrCl ~ 35, WBC increased to 29 today Recommendation: Loading dose: 1 gram given 09/28/19 @ 11:00 Maintenance dose: 500 mg every 12 hours Trough goal: 15-20 ug/mL, with first trough on 09/30/19 @ 10:30 Will continue to follow.
--- NOTE | 2019-09-28 19:00 | NUR ---
Bedside report received from LOIS Tyler.
--- NOTE | 2019-09-28 20:00 | NUR ---
Patient awake at this time sitting up in bed. She is alert but confused. Oriented to self and situation, but not date, time of day, or month. Conversation starts out as being oriented, but she drifts into other things quickly and becomes confused. Vitals obtained and are WNL. Assessment complete. Lungs are clear in all perkins as well as diminished. LLL is absent. HR and rhythm are regular at this time, but she moves in and out of rate controlled afib. Cardizem drip has remained off. Bowel sounds active x4. Peripheral pulses are palpable. Patient continues to have edema in BLE. Repositioned for comfort. No further needs at this time. Patient denies pain and shows no signs of distress. Will continue to monitor. Call light within reach.
[2019-09-29] VITALS (451 sets, daily range): BP systolic 97–134; BP diastolic 45–78; PULSE 70–90; TEMP 97.5–98.6; O2SAT 56–100
--- NOTE | 2019-09-29 | NUR ---
Patient is alert and confused. Patient talks about there being too many TV's in the room and that she cant turn the TV back on. Assisted her with the TV and found a channel she preferred. Vitals obtained and remain stable. No signs of distress and patient denies pain. Patient requests something to eat as her dinner was "unedible". Provided patient with some puddings and schuyler crackers, also provided some new hot tea and water. Offered her some apple sauce as well, but she denies want. No further needs at this time. Will continue to monitor. Call light within reach.
[2019-09-29 06:18] LABS: MEAN CELL VOLUME 95 fl (80.0-100.0); MEAN CORPUSCULAR HGB CONC 32 g/dl (33.0-37.0); MEAN PLATELET VOLUME 9.3 fl (7.4-10.4); PLATELET COUNT 377 K/mm3 (130-400); RED BLOOD COUNT 2.79 M/mm3 (4.10-5.30); REDCELL DISTRIBUTION WIDTH-CV 15.3 % (11.5-14.5)
[2019-09-29 06:34] LABS: CALCIUM 7.6 mg/dL (8.4-10.2); CREATININE, serum 0.97 (0.52-1.25); HEMATOCRIT 26.6 % (37.0-47.0); HEMOGLOBIN 8.4 g/dl (12.5-16.0); MEAN CORPUSCULAR HEMOGLOBIN 30 pg (27.0-31.0); POTASSIUM 3.6 mmol/L (3.4-5.0)
--- NOTE | 2019-09-29 07:36 | NUR ---
Bedside report given to LOIS Castillo.
[2019-09-29 09:06] LABS: PLEURAL FLUID RBC 2000 /mm3 (0-0); PLEURAL FLUID WBC 254 /mm3
[2019-09-29 09:09] LABS: PLEURAL FLUID APPEARANCE CLEAR; PLEURAL FLUID COLOR YELLOW
[2019-09-29 09:17] LABS: GLUCOSE,PLEURAL FLUID 101 mg/dL
[2019-09-29 09:21] LABS: TOTAL PROTEIN,PLEURAL FLUID < 2.0 gm/dL
[2019-09-29 10:21] LABS: BAND 4 % (0-10); METAMYELOCYTE 1 % (0-0); NEUTROPHILS 90 % (42.0-75.2)
[2019-09-29 10:22] LABS: HYPOCHROMIA 2+; TARGET CELLS 1+
[2019-09-29 10:23] LABS: BURR CELLS 1+; SCHISTOCYTES 1+
[2019-09-29 10:26] LABS: PLATELET ESTIMATE NORMAL (NORMAL)
--- NOTE | 2019-09-29 11:20 | NUR ---
Pt's daughter Regina updated on pt's status and plan to move to room 318. All quesitons answered.
--- NOTE | 2019-09-29 11:43 | NUR ---
Boiler/Chiller Operator attended rounds and patient to move to Medical floor today. SW attempted to meet with patient whoever she was adamant that she needed rest and requested SW leave her room. CATHI contacted [facility]-, patient's daughter Regina (ph#[phone]). Regina states patient has been living at [facility] after recent hip surgery. Regina estimates patient has been at [facility] for about a couple weeks. Regina states she does not think therapy has been going very well at [facility]. CATHI discussed a discharge plan with Regina who advised she believes patient should return to [facility]. SW presented Patient Choice Form to Regina who selects [facility] and provided verbal consent over the phone. Patient placed form in chart and faxed referral to [facility]. SW to continue to follow.
--- NOTE | 2019-09-29 12:18 | NUR ---
Pt was asleep when I went to visit with her today. She has been asking not to be disturbed. I am told she is moving to the floor today and according to social services counselorMagui, she will most likely return to her nursing facility in [place]. I will try to meet with pt again after she comes up to the floor.
--- NOTE | 2019-09-29 12:25 | NUR ---
REPORT CALLED TO AMBAR ABREU. ALL QUESTIONS ANSWERED.
--- NOTE | 2019-09-29 12:30 | NUR ---
Report received from ICU.
--- NOTE | 2019-09-29 13:00 | NUR ---
Pt transfered to medical bed amd taken up to room 318. Sabine Triplett notified of arrival.
--- NOTE | 2019-09-29 13:52 | NUR ---
[employer] Fishing Boat Crewman contacted Missy at [facility] and confirmed referral was received. Missy inquired about palliative care consult and having PT/OT ordered as patient was skilled at [facility]. SW collaborated this information to Medical SWStefanie as patient has been moved to Medical floor.
--- NOTE | 2019-09-29 22:30 | NUR ---
Patient in bed, resting. When asked if she is having pain, she said "I am fine right now", and declined pain medication. Refused all evening medications. Oriented x4. RUE PICC flushed with NS, patent. Infusing abx. Denies further needs at this time. Will continue to monitor.
[2019-09-30] VITALS (7 sets, daily range): BP systolic 86–116; BP diastolic 35–62; PULSE 64–97; TEMP 97–98.2
--- NOTE | 2019-09-30 04:00 | NUR ---
Patient in bed, awake. Appears anxious. States pain is 8/10 in right hip. Assisted on the bedpan with assist x2. Prn pain medication given per pt request. Patient was woken up by IV pump beeping, but was previously resting and appeared comfortable. Also states she is having difficulty breathing. 88% on 3L. Oxygen increased to 4L per pt request. RT notified that patient would like to be placed on BIPAP. Will continue to monitor.
--- NOTE | 2019-09-30 05:39 | NUR ---
Patient in bed, awake. States pain 7/10 in right hip. Prn pain medication given per pt request. BIPAP also removed per pt request, placed on 4L NC. Denies further needs at this time. Will continue to monitor.
[2019-09-30 06:36] LABS: MEAN CELL VOLUME 97 fl (80.0-100.0); MEAN CORPUSCULAR HGB CONC 31 g/dl (33.0-37.0); MEAN PLATELET VOLUME 9.9 fl (7.4-10.4); PLATELET COUNT 382 K/mm3 (130-400); RED BLOOD COUNT 2.82 M/mm3 (4.10-5.30); REDCELL DISTRIBUTION WIDTH-CV 15.2 % (11.5-14.5)
[2019-09-30 06:44] LABS: HEMATOCRIT 27.2 % (37.0-47.0); HEMOGLOBIN 8.3 g/dl (12.5-16.0); MEAN CORPUSCULAR HEMOGLOBIN 29 pg (27.0-31.0)
[2019-09-30 06:48] LABS: CALCIUM 7.6 mg/dL (8.4-10.2); CREATININE, serum 0.76 (0.52-1.25); MAGNESIUM 2.4 mg/dL (1.6-2.3); POTASSIUM 3.5 mmol/L (3.4-5.0)
[2019-09-30 07:56] LABS: PATHOLOGY DIFF REVIEW OK +
--- NOTE | 2019-09-30 08:15 | NUR ---
Patient sitting up in bed, A&Ox3. Reporting pain in right hip and all over body. Pain medication requested. VSS 3L NC O2. SOB reported with talking. IV CDI. Patient encouraged to repositioned to distribute weight on buttucks. Patient verbalized an understanding. Heels floated. No further needs expressed from patient. Call light within reach
[2019-09-30 09:01] LABS: BAND 9 % (0-10); LYMPHOCYTE 1 % (20.0-51.0); NEUTROPHILS 86 % (42.0-75.2); SCHISTOCYTES 1+
[2019-09-30 09:02] LABS: PLATELET ESTIMATE NORMAL (NORMAL)
--- NOTE | 2019-09-30 10:27 | NUR ---
CATHI faxed updates to [facility]. human services supervisor will continue to follow.
--- NOTE | 2019-09-30 11:35 | NUR ---
Talked with Abbi today who reports in general she is tired from being awakened so many times each day but is requesting magazines to look at and these were provided for her. her hip has been causing some pain today but she reports feeling much improved. States her valve is a problem now but knows Dr Escobar is looking into it. Plans to rest soon.
--- NOTE | 2019-09-30 19:20 | NUR ---
Patient repositioned in bed for comfort. Reporting pain in right hip down to right ankle. Pain medication given when requested. Lidocaine placed on right hip. Dressing on sacral area changed with pink dressing. Heels floated. VSS. IV CDI. No further needs expressed from patient. Call light within reach. Bed alarm on
--- NOTE | 2019-09-30 19:50 | NUR ---
Shift assessment complete. Patient in bed, awake. States pain in right hip is 8/10. States she feels anxious more than she does painful. Prn xanax given per pt request. Prn pain medication also given per pt request (norco was not effective). Assisted patient with setting up cereal/milk. Turned to left side (slightly), with pillow support. RUE PICC flushed per protocol. Denies further needs at this time. Will continue to monitor.
--- NOTE | 2019-09-30 23:47 | NUR ---
Patient in bed. Incontinent of urine. Bed pad and linen changed, terese-care provided. Repositioned to right side with pillow support. Pillow between knees. Heels noted to be reddened, not blanchable. Heel pillows applied. BP 100/40, cardizem held. Patient agreeable to wearing BIPAP, RT notified. SCD's applied. Denies further needs at this time. Will continue to monitor.
[2019-10-01 04:16] VITALS: BP 101/49; PULSE 85; TEMP 97.5
[2019-10-01 04:44] VITALS: BP 133/59; PULSE 76
--- NOTE | 2019-10-01 04:45 | NUR ---
Patient in bed, awake. BIPAP removed per pt request, oxygen via NC placed at 3L. Large incontinent BM/urine. Anita-care provided, bed pad changed, gown changed. Large mepilex changed on coccyx. Pt tolerated well. Repositioned to left side with pillow support. Heel pillows placed, SCD's on. States pain in right hip is 5/10, and is better. Declines pain medication. Denies further needs at this time. Will continue to monitor.
[2019-10-01 06:43] LABS: CALCIUM 7.7 mg/dL (8.4-10.2); CREATININE, serum 0.65 (0.52-1.25); POTASSIUM 3.5 mmol/L (3.4-5.0)
--- NOTE | 2019-10-01 07:30 | NUR ---
Received report, patient rang call light, was incontinent of medium stool. Patient was irritated, states she was uncomfortable and no one paid attention to her. Was notified in report that she was changed prior to shift report for urine incontinence. Patient states she is in pain. Medications provided for relief and repositioned after terese-care completed. Call light and personal items are within reach.
--- NOTE | 2019-10-01 08:28 | NUR ---
PATIENT WORE BIPAP LAST NIGHT AT 01/06
[2019-10-01 08:51] LABS: MEAN CELL VOLUME 97 fl (80.0-100.0); MEAN CORPUSCULAR HGB CONC 31 g/dl (33.0-37.0); MEAN PLATELET VOLUME 9.9 fl (7.4-10.4); PLATELET COUNT 426 K/mm3 (130-400); RED BLOOD COUNT 2.94 M/mm3 (4.10-5.30); REDCELL DISTRIBUTION WIDTH-CV 15.4 % (11.5-14.5)
[2019-10-01 08:53] LABS: HEMATOCRIT 28.4 % (37.0-47.0); HEMOGLOBIN 8.9 g/dl (12.5-16.0); MEAN CORPUSCULAR HEMOGLOBIN 30 pg (27.0-31.0)
[2019-10-01 09:17] LABS: BAND 8 % (0-10); LYMPHOCYTE 2 % (20.0-51.0); METAMYELOCYTE 1 % (0-0); MYELOCYTE 1 % (0-0)
[2019-10-01 09:18] LABS: NEUTROPHILS 84 % (42.0-75.2); PLATELET ESTIMATE NORMAL (NORMAL)
--- NOTE | 2019-10-01 09:27 | NUR ---
Two daughters were present in the room when Dr Aguilar visited. [facility] has declined transfer of this pt to them as they do not feel they would have any other treatment to offer. Daughters want to know what their mother's diagnosis is clearly defined as--"even if she had to go to surgery and on the table". Because [facility] has declined transfer, we are now waiting for family to discuss where they want their mother, who is on comfort care now, to go from here. They are waiting for their father to arrive and then they will start discussion, knowing that we are expecting a decision by the end of the day. Will provide support as they request.
[2019-10-01 11:51] VITALS: BP 101/54; PULSE 83; TEMP 97.6
--- NOTE | 2019-10-01 13:27 | NUR ---
A CT of the hip and chest was ordered for the patient. CATHI faxed update to [facility]. creative services specialist will continue to follow.
--- NOTE | 2019-10-01 14:59 | NUR ---
[facility] has accepted the patient for a long-term stay. managed services consultant will continue to follow.
--- NOTE | 2019-10-01 15:51 | NUR ---
Patient has left floor for CT scan
[2019-10-01 16:46] VITALS: BP 115/51; PULSE 89; TEMP 97.9
[2019-10-01 21:05] VITALS: BP 104/44; PULSE 107; TEMP 98.3
--- NOTE | 2019-10-01 21:15 | NUR ---
Shift assessment complete. Patient in bed, incontinent of large amount of urine. Anita-care provided, bed pad changed. Brief kept off d/t stage 2 on bottom. Mepilex on coccyx changed. Repositioned to right side with pillow support. Pillow support between knees. Bilateral heels noted to be reddened, not blanching. Heels floated in heel pillows. States pain is 7/10. Prn pain medication given. States she feels anxious, prn xanax given. Patient requesting to wear BIPAP for sleep, RT notified. Denies further needs at this time. Will continue to monitor.
[2019-10-01 23:25] VITALS: BP 95/49; PULSE 109; TEMP 97.4
--- NOTE | 2019-10-01 23:44 | NUR ---
Patient in bed, awake. States pain 8/10 in left hip. Prn IV medication given per request. BP 95/49. Cardizem held per ordered parameters. Patient states that the bipap makes her feel more anxious. Bipap removed, oxymask placed on 3L per pt request. Resps 40. Will notify Ave, MOTORCYCLE TECHNICIAN. Repositioned to right side with pillow support. Denies further needs at this time. Will continue to monitor.
--- NOTE | 2019-10-02 00:12 | NUR ---
Notified Ave, RACECAR DRIVER of patient's anxiety r/t BIPAP. IV ativan ordered. Patient agreeable to plan. RT notified.
--- NOTE | 2019-10-02 02:00 | NUR ---
Patient very drowsy, but awake. 16fr cardenas catheter placed with slight difficulty, and assist times 3. Clear yellow urine returned, 10ml balloon inflated. Stat-lock secure. 800ml out immediately, tubing clamped for 1/2 hour to avoid bladder spasms. Will continue to monitor and unclamp in 30 minutes. Repositioned to left side with pillow support. Heel pillows applied, pillow betweem knees. RT called to place BIPAP.
[2019-10-02 03:46] VITALS: BP 103/44; PULSE 101; TEMP 99.1
[2019-10-02 05:00] VITALS: BP 116/48
--- NOTE | 2019-10-02 05:13 | NUR ---
Patient in bed, RT at bedside. Per RT, pt took BIPAP off and threw her tele box at her. Patient requesting medication to "relax" her. Ave, CARPET INSTALLER HELPER notified, prn ativan ordered. Repositioned to right side with pillow support. BP 116/48, unable to give po cardizem d/t patient condition. Very drowsy, and does not want to be bothered. HR NSR 103 on tele. 71% on 3L oxymask. Oxygen increased to 5L. 88% on 5L oxymask. Denies further needs at this time, she wants to rest. Will continue to monitor.
--- NOTE | 2019-10-02 05:41 | NUR ---
Patient states she does feel like she is getting worse. When asked if her daughter can come visit with her, she stated that her daughter doesn't drive. In the case that she continues to decline, she states she would like her daughter here with her, and that her daughter would be able to find a way to come to the hospital.
[2019-10-02 06:39] LABS: MEAN CELL VOLUME 98 fl (80.0-100.0); MEAN CORPUSCULAR HGB CONC 31 g/dl (33.0-37.0); MEAN PLATELET VOLUME 9.8 fl (7.4-10.4); PLATELET COUNT 368 K/mm3 (130-400); RED BLOOD COUNT 2.68 M/mm3 (4.10-5.30); REDCELL DISTRIBUTION WIDTH-CV 15.8 % (11.5-14.5)
[2019-10-02 06:42] LABS: CALCIUM 7.8 mg/dL (8.4-10.2); CREATININE, serum 0.67 (0.52-1.25); POTASSIUM 4.7 mmol/L (3.4-5.0)
[2019-10-02 06:44] LABS: HEMATOCRIT 26.2 % (37.0-47.0); HEMOGLOBIN 8.2 g/dl (12.5-16.0); MEAN CORPUSCULAR HEMOGLOBIN 31 pg (27.0-31.0)
[2019-10-02 07:39] LABS: BAND 13 % (0-10); LYMPHOCYTE 3 % (20.0-51.0); METAMYELOCYTE 3 % (0-0); MYELOCYTE 2 % (0-0); NEUTROPHILS 75 % (42.0-75.2); PLATELET ESTIMATE NORMAL (NORMAL)
--- NOTE | 2019-10-02 07:45 | NUR ---
Received report from off going nurse. It was reported that patient had audible tracheal secretions and that she had a decline over night. Did go for rounding, patient is resting in bed, respirations are shallow and 36/minute. Abdominal breathing is noted. She has an oxymask in place at 10 lpm. Did touch patient's arm and state her name without verbal response, did note a grimace. Respiratory therapy did stop in and turned O2 to 8 lpm as patient was sating at 98% on the 10 L. There is noted to be little to no air movement to BLL upon auscultation. Did place call to provider, received order for ABG and stat cxr. Orders placed. Dr. Escobar is on the floor and he did assess patient. Discussed with patient her wishes if she her health declines further. She reported to him that she does not wish to have any other measures taken. Dr. Escobar asked to contact the daughter and this was done, he spoke with her regarding patients status and wishes. Daughter says she will be coming up to see patient today when she can get a ride.
[2019-10-02 08:11] LABS: ARTERIAL BLD GAS TCO2 CT 36.7; ARTERIAL BLOOD GAS BASE EXCESS 8.7 (-2-2); ARTERIAL BLOOD GAS HCO3 34.9 meq/L (22-26); ARTERIAL BLOOD GAS PCO2 57.9 mmHg (35-45); ARTERIAL BLOOD GAS PO2 79.2 mmHg (80-100)
[2019-10-02 08:20] VITALS: BP 100/52; PULSE 106; TEMP 100.2
--- NOTE | 2019-10-02 10:00 | NUR ---
PICC intact right upper arm with sterile dressing change done with insertion site cleansed with chloraprep x 1, chlorhexidine impreganted disk applied, skin prep, stat lock, and tegaderm applied. no signs or symptoms of IV complications noted. no concerns voiced. re-wrapped with christina to protect catheter.
--- NOTE | 2019-10-02 10:16 | NUR ---
Initial visit; Patient thanked Rand Butting Machine Operator for looking in on her and offering Bod's blessings and for keeping her in Rand Butting Machine Operator's prayers.
--- NOTE | 2019-10-02 10:30 | NUR ---
Patient was complaining of increased pain. Did reposition in the bed, stated that was helpful. Did receive PRN morphine an hour prior. She was satistfied with her comfort level now. Patient was moved to room 356 at 1000 for closer observation by nursing staff. She has been noted to be yelling out at times. This allows for staff to hear her.
--- NOTE | 2019-10-02 11:51 | NUR ---
0900 I spoke first with pt and then with her daughter. They are both clear that they do not want intubation or bipap but would like for things medication mcdonough that might help her feel better. She does recognize that this could be an event that does not imiprove a lot, but would like to try medications that might help. I then spoke with her daughter and encouraged her to consider coming now if she wishes to see her mother. She is very emotional but will contact family to bring her to see her mother. It will lprobably be 4-5 hours beforeo she can get here.
[2019-10-02 12:35] VITALS: BP 91/39; PULSE 101; TEMP 97.9
--- NOTE | 2019-10-02 15:36 | NUR ---
Patient administered dose of pain medication per her request. She also requested to be taken off her oxy-mask and have her nasal cannula replaced. She stated the oxygen was loud and the mask was irritating her face. This was done, O2 is at 4L, saturation is at 96-97% so far. Patient stated it was much more comfortable this way. Call light and personal itmes are within reach.
--- NOTE | 2019-10-02 15:56 | NUR ---
Patient was heard yelling out for help. Went in to see how patient was and she requested assistance turning to her right side. She also had a bowel movement, pericare and catheter care provided. Was moved up in the bed and then turned to right, she stated she was much more comfortable. Patient continues to use nasal cannula and saturations remain above 90%. She still has lunch tray and declines for staff to remove it from room.
[2019-10-02 16:04] VITALS: BP 86/37; PULSE 101; TEMP 97.3
--- NOTE | 2019-10-02 16:39 | NUR ---
SW faxed updates to [facility].
--- NOTE | 2019-10-02 17:40 | NUR ---
Repositioned and turned patient to left side. Put blanket in between of patient's legs. Patient states she felt more comfortable.
[2019-10-02 20:27] VITALS: BP 96/51; PULSE 99; TEMP 98.3
--- NOTE | 2019-10-02 20:30 | NUR ---
Initial shift assessment done-many little requests- did eat a few bites of food from supper - requesting xanax and pain meds for bilateral hip pain- given as ordered, repositioned, Patel to DD with clear yellow urine, warm blanket given as requested
[2019-10-03] VITALS: BP 97/42; PULSE 96; TEMP 98.3
[2019-10-03 03:55] VITALS: BP 104/67; PULSE 91; TEMP 97.6
--- NOTE | 2019-10-03 06:17 | NUR ---
Has had a overall quiet night- has been given Xanax x2 and Aguila/Morphine as needed for pain- o2 at 4L/nc at 97%-98%
[2019-10-03 06:30] LABS: MEAN CELL VOLUME 99 fl (80.0-100.0); MEAN CORPUSCULAR HGB CONC 31 g/dl (33.0-37.0); MEAN PLATELET VOLUME 9.9 fl (7.4-10.4); PLATELET COUNT 370 K/mm3 (130-400); RED BLOOD COUNT 2.56 M/mm3 (4.10-5.30); REDCELL DISTRIBUTION WIDTH-CV 15.9 % (11.5-14.5)
[2019-10-03 06:36] LABS: HEMATOCRIT 25.3 % (37.0-47.0); HEMOGLOBIN 7.8 g/dl (12.5-16.0); MEAN CORPUSCULAR HEMOGLOBIN 30 pg (27.0-31.0)
[2019-10-03 06:45] LABS: CALCIUM 7.6 mg/dL (8.4-10.2); CREATININE, serum 0.56 (0.52-1.25); MAGNESIUM 1.9 mg/dL (1.6-2.3); POTASSIUM 4.2 mmol/L (3.4-5.0)
[2019-10-03 08:40] VITALS: BP 121/60; PULSE 93; TEMP 97.3
[2019-10-03 08:40] LABS: BAND 13 % (0-10); EOSINOPHIL 1 % (0-4); LYMPHOCYTE 6 % (20.0-51.0); METAMYELOCYTE 2 % (0-0); NEUTROPHILS 72 % (42.0-75.2); PLATELET ESTIMATE NORMAL (NORMAL)
[2019-10-03 08:41] LABS: OVALOCYTES 1+
--- NOTE | 2019-10-03 08:54 | NUR ---
Pt resting in the bed, family in the room, has some C/O pain in R hip / ankle, lidicaine patches applied to areas, shift assessment complete, left Pt call light in reach, bed in lowest position.
--- NOTE | 2019-10-03 09:08 | NUR ---
[facility] Nurse informed CATHI that patient is going to [facility] this day. CATHI faxed information to [facility].
--- NOTE | 2019-10-03 09:14 | NUR ---
Dr walden met with daughter this am in room and did suggest a transfer to comfort care and [facility]. I spoke with daughter Regina by phone who also agrees that this is the direction she wishes to go with her mother's care. I spoke Vincenzo at [facility] who took information and will begin to work toward a transfer, hopefully today. I am faxing the DPOA-HC to [facility] now and did advise them that she has a DNR order.
[2019-10-03 13:01] VITALS: BP 105/51; PULSE 98; TEMP 97.4
[2019-10-03] MEDS ORDERED: ROXANOL 20MG20 MG/ML PO (15:19)
[2019-10-03] MEDS ORDERED: LORAINT PO (15:20)
[2019-10-03 15:25] VITALS: BP 105/51; PULSE 98; TEMP 97.4
--- NOTE | 2019-10-03 15:41 | NUR ---
The patient is to discharge this day, 10/03 to the [facility]. SW presented the IM form to the patient's daughter/DPOA-HC understood and signed the form, original placed in the chart. [facility] reports they can transport the patient at 1600. The team and family were in agreeance. SW faxed discharge orders. There are no additional needs at this time.
--- NOTE | 2019-10-03 15:54 | NUR ---
Pt has been accepted at [facility] with Dr Wayne Mckeon following. Plan foro discharge there at 4pm. Daughter is here now talking with Dr Aguilar.
--- NOTE | 2019-10-03 16:19 | NUR ---
Pt transferred to Hospice, left via EMS.
== END 2019-10-03 16:21 | disposition hospice, inpatient (51) | DRG 193 ==
LOC: COL.ER 10:14 → IMCU 13:57 → ICU 09-26 15:20 → MEDICAL 09-29 13:08
PROVIDERS: Emergency Medicine; Internal Medicine Pulmonary Disease; Nurse Practitioner Family; Physician Assistant; ADMIT Hospitalist
PROC: 02HV33Z Insertion of Infusion Device into Superior Vena Cava, Percutaneous Approach (ICD-10-PCS; principal; 2019-09-26)
PROC: 0W993ZZ Drainage of Right Pleural Cavity, Percutaneous Approach (ICD-10-PCS; 2019-09-26)
PROC: 0W9B3ZZ Drainage of Left Pleural Cavity, Percutaneous Approach (ICD-10-PCS; 2019-09-29)
PROC: 5A09357 Assistance with Respiratory Ventilation, Less than 24 Consecutive Hours, Continuous Positive Airway Pressure (ICD-10-PCS; 2019-10-01)
DX: J18.9 Pneumonia, unspecified organism (principal); J96.21 Acute and chronic respiratory failure with hypoxia; S72.001A Fracture of unspecified part of neck of right femur, initial encounter for closed fracture; J96.02 Acute respiratory failure with hypercapnia; E43 Unspecified severe protein-calorie malnutrition; A41.9 Sepsis, unspecified organism; J90 Pleural effusion, not elsewhere classified; R64 Cachexia; J44.1 Chronic obstructive pulmonary disease with (acute) exacerbation; J44.0 Chronic obstructive pulmonary disease with (acute) lower respiratory infection; I48.91 Unspecified atrial fibrillation; I27.20 Pulmonary hypertension, unspecified; Z96.641 Presence of right artificial hip joint; D64.9 Anemia, unspecified; I10 Essential (primary) hypertension; Z66 Do not resuscitate; Z90.710 Acquired absence of both cervix and uterus; Z79.82 Long term (current) use of aspirin; Z79.01 Long term (current) use of anticoagulants; Z79.891 Long term (current) use of opiate analgesic; Z87.891 Personal history of nicotine dependence; Z88.1 Allergy status to other antibiotic agents; Z51.5 Encounter for palliative care; F41.9 Anxiety disorder, unspecified; I08.1 Rheumatic disorders of both mitral and tricuspid valves; K59.00 Constipation, unspecified; R33.9 Retention of urine, unspecified; Y95 Nosocomial condition
CPT/HCPCS: 99222-AI; 99231-AI; 99232-AI; 99233-AI; 99239; C1751; C9113; J1450; J1650; J1956; J2060; J2270; J2543; J2920; J2930; J3370; J3480; J7050; J7512; P9016; Q9967